=== PATIENT | female | born 1995 | race Two or more races ===

== ENCOUNTER 2024-02-08 14:00 | Inpatient (IN) | payer OTHER ==
[~2024-02-08] VITALS: Ht 160 cm; Wt 3.2 kg
[2024-02-29] MEDS ORDERED: OXYTOCIN 20 UNITS/500ML RL PIGGYBAG IV ONE (07:48)
[2024-02-29] MEDS ORDERED: PRENATAL TABLE1 EAC1 PO (08:02)
[2024-02-29] MEDS ORDERED: SYNTHROID75 MCG PO (08:03)
[2024-02-29] MEDS ORDERED: IRON325 MG PO (08:04)
[2024-02-29] MEDS ORDERED: OXYTOCIN 500 ML IV SCH (08:15)
[2024-02-29] MEDS ORDERED: RINGERS SOLUTION,LACTATED 1,000 ML IV SCH (08:15)
[2024-02-29 08:19] LABS: HEMATOCRIT 29.2 % (36.0-45.00); HEMOGLOBIN 10.1 g/dL (12.0-15.00); MEAN CELL VOLUME 90.8 fL (80.00-100.00); MEAN CORPUSCULAR HEMOGLOBIN 31.6 pg (27.00-32.0); MEAN CORPUSCULAR HGB CONC 34.8 g/dl (32.0-36.0); PLATELET COUNT 202 K/uL (150-450); RED BLOOD COUNT 3.21 M/uL (4.00-6.00); RED CELL DISTRIBUTION WIDTH 15.5 % (11.5-14.5)
[2024-02-29 08:50] LABS: ALBUMIN 2.6 gm/dL (3.4-5.0); BILIRUBIN TOTAL 0.57 mg/dL (0.3-1.2); CALCIUM 8.6 mg/dL (8.5-10.1); CREATININE SERUM 0.5 mg/dL (0.55-1.02); GFR 149.14; GLOBULINA 3.1 G/DL (2.4-3.5); POTASSIUM 3.08 mEq/L (3.5-5.1); TOTAL PROTEIN 5.7 gm/dL (6.4-8.2)
[2024-02-29 08:54] LABS: INR 0.94; PARTIAL THROMBOPLASTIN TIME 26.4 SECONDS (22.0-34.0); PROTHROMBIN TIME 10.3 SECONDS (9.0-11.5)
[2024-02-29] MEDS ORDERED: MORPHINE SULFATE 4 MG/ML CARTRIDGE IV ONE (12:45)
[2024-02-29] MEDS ORDERED: CEFOXITIN SODIUM 2,000 MG VIAL IV ONE (16:21)
[2024-02-29] MEDS ORDERED: CITRIC ACID/SODIUM CITRATE 30 ML BLIST.PACK PO ONE (16:22)
[2024-02-29] MEDS ORDERED: ERYTHROMYCIN BASE 1 GM TUBE OP ONE (16:36)
[2024-02-29] MEDS ORDERED: OXYTOCIN 10 UNITS/ML VIAL ONE ×2 (16:37→21:12)
[2024-02-29] MEDS ORDERED: CITRIC ACID/SODIUM CITRATE 30 ML BLIST.PACK PO SCH (17:00)
[2024-02-29] MEDS ORDERED: CEFOXITIN SODIUM 2,000 MG VIAL IV SCH (17:00)
[2024-02-29] MEDS ORDERED: KETOROLAC TROMETHAMINE 30 MG VIAL IM PRN (18:30)
[2024-02-29] MEDS ORDERED: PROMETHAZINE HCL 25 MG/ML AMPUL IM PRN (18:30)
[2024-02-29] MEDS ORDERED: MEPERIDINE HCL/PF 50 MG,MEPERIDINE HCL/PF 25 MG IM PRN (18:30)
[2024-02-29] MEDS ORDERED: SIMETHICONE 125 MG CAPSULE PO SCH (21:00)
[2024-02-29] MEDS ORDERED: KETOROLAC TROMETHAMINE 30 MG VIAL ONE (21:06)
[2024-02-29] MEDS ORDERED: OXYTOCIN 1,000 ML IV ONE (21:15)
[2024-03-01] MEDS ORDERED: CEFOXITIN SODIUM 2,000 MG VIAL IV SCH (01:00)
[2024-03-01 01:16] LABS: HEMATOCRIT 33.1 % (36.0-45.00); HEMOGLOBIN 11.5 g/dL (12.0-15.00); MEAN CELL VOLUME 89.8 fL (80.00-100.00); MEAN CORPUSCULAR HEMOGLOBIN 31.1 pg (27.00-32.0); MEAN CORPUSCULAR HGB CONC 34.6 g/dl (32.0-36.0); PLATELET COUNT 208 K/uL (150-450); RED BLOOD COUNT 3.69 M/uL (4.00-6.00); RED CELL DISTRIBUTION WIDTH 15.8 % (11.5-14.5)
[2024-03-01] MEDS ORDERED: LEVOTHYROXINE SODIUM 75 MCG TABLET PO SCH ×2 (06:00)
[2024-03-01 07:26] LABS: HEMATOCRIT 30.4 % (36.0-45.00); HEMOGLOBIN 10.5 g/dL (12.0-15.00); MEAN CELL VOLUME 90.4 fL (80.00-100.00); MEAN CORPUSCULAR HEMOGLOBIN 31.3 pg (27.00-32.0); MEAN CORPUSCULAR HGB CONC 34.6 g/dl (32.0-36.0); PLATELET COUNT 196 K/uL (150-450); RED BLOOD COUNT 3.36 M/uL (4.00-6.00); RED CELL DISTRIBUTION WIDTH 15.5 % (11.5-14.5)
[2024-03-01] MEDS ORDERED: KETOROLAC TROMETHAMINE 10 MG TABLET PO PRN (08:00)
[2024-03-01] MEDS ORDERED: OxyCODONE HCL/APAP UD (PERCOCET) PO SCH (09:00)
[2024-03-02] MEDS ORDERED: KETO10TA2 PO (10:57)
[2024-03-02] MEDS ORDERED: OXYC1TAB9 PO (10:58)
== END 2024-03-02 14:18 | disposition home or self-care (01) | DRG 788 ==
LOC: OB/GYN 02-26 14:00 → LDR 02-29 07:22 → OB/GYN 02-29 19:43
PROVIDERS: Obstetrics & Gynecology Maternal & Fetal Medicine; ADMIT Obstetrics & Gynecology; ATTEND Obstetrics & Gynecology
PROC: 4A1HXCZ Monitoring of Products of Conception, Cardiac Rate, External Approach (ICD-10-PCS; 2024-02-29)
PROC: 10D00Z1 Extraction of Products of Conception, Low, Open Approach (ICD-10-PCS; principal; 2024-02-29 16:00)
DX: O33.8 Maternal care for disproportion of other origin (principal); Z3A.40 40 weeks gestation of pregnancy; Z37.0 Single live birth; Z20.822 Contact with and (suspected) exposure to COVID-19

== ENCOUNTER → 2024-02-22 09:37 | Outpatient (CLI) | payer OTHER | END | disposition home or self-care (01) | LOC: NST 09:37 | PROVIDERS: ATTEND Obstetrics & Gynecology Maternal & Fetal Medicine | DX: Z34.83 Encounter for supervision of other normal pregnancy, third trimester (principal) ==

== ENCOUNTER 2024-02-26 08:48 | Outpatient (CLI) | payer OTHER | END 2024-02-26 09:48 | disposition home or self-care (01) | LOC: NST 08:48 | PROVIDERS: ATTEND Obstetrics & Gynecology Maternal & Fetal Medicine | DX: Z34.83 Encounter for supervision of other normal pregnancy, third trimester (principal) ==

== ENCOUNTER 2024-02-28 08:45 | Outpatient (CLI) | payer OTHER ==
[2024-02-29] MEDS ORDERED: PRENATAL TABLE1 EAC1 PO (08:02)
[2024-02-29] MEDS ORDERED: SYNTHROID75 MCG PO (08:03)
[2024-02-29] MEDS ORDERED: IRON325 MG PO (08:04)
== END 2024-02-28 09:24 | disposition home or self-care (01) ==
LOC: NST 08:45
PROVIDERS: ATTEND Obstetrics & Gynecology Maternal & Fetal Medicine
DX: Z34.83 Encounter for supervision of other normal pregnancy, third trimester (principal)